=== PATIENT | male | born 1955 | race Caucasian/White ===

== ENCOUNTER 2018-05-04 23:03 | Inpatient (IN) | payer MEDICARE, MEDICAID ==
[~2018-05-04] VITALS: Ht 177.8 cm; Wt 80.2 kg
[~2018-05-04 23:03] MED LIST: ALEN70TA3 PO; ATOR-2 PO; CARB1TAB3 PO; DIVA500T2 PO; DIVA500T4 PO; LACO200T PO; LEVE100020 PO; LEVO0.5P PO; PROP10TA16 PO
[2018-05-04] MEDS ORDERED: METOCLOPRAMIDE 5 MG/ML, 2ML IVPush ONE (23:30)
[2018-05-04] MEDS ORDERED: LORazepam 2 MG/ML, 1ML IVPush ONE (23:30)
[2018-05-04] MEDS ORDERED: SODIUM CHLORIDE FLUSH 10ML SYR IVF ONE (23:30)
--- NOTE | 2018-05-04 23:52 | NUR ---
PT TO RAD
[2018-05-05 00:01] LABS: ALBUMIN 3.6 g/dL (3.4-5.0); ANION GAP 8 mmol/L (5-15); CALCIUM 9.3 mg/dL (8.5-10.1); CHLORIDE 102 mmol/L (98-107)
[2018-05-05 00:05] LABS: ALANINE AMINOTRANSFERASE 25 U/L (12-78); ALKALINE PHOSPHATASE 53 U/L (45-117); BILIRUBIN,TOTAL 0.6 mg/dL (0.2-1.0); CREATININE 1.09 mg/dL (0.7-1.3); TOTAL PROTEIN 7.2 g/dL (6.4-8.2)
[2018-05-05 00:16] LABS: BASOPHILS # (AUTO) 0.12 x10^3/uL (0-0.1); BASOPHILS % (AUTO) 1 % (0-1); EOSINOPHILS # (AUTO) 0.19 x10^3/uL (0-0.4); EOSINOPHILS % (AUTO) 1 % (1-7); LYMPHOCYTES % (AUTO) 13 % (22-44); MD NO; MEAN CORPUSCULAR HEMOGLOBIN 32.2 pg (27.5-34.5); MEAN CORPUSCULAR HGB CONC 34.1 g/dL (33.2-36.2); MEAN CORPUSCULAR VOLUME 94.3 fL (81-97); MEAN PLATELET VOLUME 9.2 fL (7.4-10.4); MONOCYTES # (AUTO) 1.28 x10^3/uL (0.2-0.8); MONOCYTES % (AUTO) 9 % (2-9); NEUTROPHILS # (AUTO) 11.13 x10^3/uL (1.8-6.8); NEUTROPHILS % (AUTO) 76 % (42-75); PLATELET COUNT 136 x10^3/uL (130-400); RED BLOOD COUNT 4.75 x10^6/uL (4.38-5.82); RED CELL DISTRIBUTION WIDTH 14.3 % (9.4-14.8)
[2018-05-05] MEDS ORDERED: METOCLOPRAMIDE 5 MG/ML, 2ML ONE (00:31)
[2018-05-05] MEDS ORDERED: LORazepam 2 MG/ML, 1ML ONE (00:32)
--- NOTE | 2018-05-05 01:05 | NUR ---
IV STARTED, ORDERED MEDS GIVEN. PT HAS SEIZURE PRECAUTIONS ON BED. 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 BILAT BEDRAILS UP. CALL LIGHT WITHIN REACH.
--- NOTE | 2018-05-05 01:21 | NUR ---
report to Lyubov rojas.
--- NOTE | 2018-05-05 01:21 | NUR ---
MED REQ UPDATED PER EMS STATED CURRENT MEDS. PT UNSURE OF DOSES. PT PLACED ON 2L O2 PER N/C DUE TO DESATING TO 86% ON RA WHILE DOZING OFF.
--- NOTE | 2018-05-05 01:29 | NUR ---
FOREHEAD WOUND CLEANED AND DRESSED.
[2018-05-05] MEDS ORDERED: ASPIRIN PO (01:30)
[2018-05-05] MEDS ORDERED: DIVALPROEX (01:30)
[2018-05-05 03:08] VITALS: BP 124/77
[2018-05-05 04:38] VITALS: BP 123/78
[2018-05-05] MEDS ORDERED: NS + 20MEQ KCL 1,000 ML IV SCH (05:41)
[2018-05-05] MEDS ORDERED: DOCUSATE 100 MG CAPSULE PO PRN (06:00)
[2018-05-05] MEDS ORDERED: ONDANSETRON 2MG/ML, 2ML IVPush PRN (06:00)
[2018-05-05] MEDS: LEVOTHYROXINE MC SCH ×2 (06:00→13:22)
[2018-05-05] MEDS ORDERED: morphine SULFATE 10 MG/ML, 1ML IVPush PRN (06:00)
[2018-05-05] MEDS ORDERED: HYDROcodone/APAP 5/325 TABLET PO PRN (06:00)
[2018-05-05] MEDS ORDERED: POLYETHYLENE GLYCOL 17 GM PACKET PO PRN (06:00)
[2018-05-05] MEDS: IBUPROFEN 600 MG TABLET PO SCH ×4 (06:31→21:08)
[2018-05-05] MEDS ORDERED: DIVALPROEX 500 MG TAB.ER.24H PO SCH (09:00)
[2018-05-05] MEDS ORDERED: LEVOTHYROXINE SODIUM PO SCH (09:00)
[2018-05-05 09:26] VITALS: BP 104/60
[2018-05-05] MEDS: PROPRANOLOL 10 MG TABLET PO SCH ×2 (10:28→21:08)
[2018-05-05] MEDS: LACOSAMIDE 50 MG TABLET PO SCH ×2 (10:28→21:09)
[2018-05-05] MEDS: SENNA/DOCUSATE TABLET PO SCH (10:29)
[2018-05-05] MEDS: LEVETIRACETAM 500 MG TABLET PO SCH ×2 (10:29→21:08)
[2018-05-05 11:03] LABS: MICROSCOPIC NOT IND
[2018-05-05 11:06] LABS: CULTURE INDICATED? NO
[2018-05-05 14:03] VITALS: BP 91/61
[2018-05-05 20:24] VITALS: BP 99/64
[2018-05-05] MEDS: DIVALPROEX 500 MG TAB.ER.24H PO SCH (21:08)
[2018-05-05] MEDS: ATORVASTATIN 80 MG TABLET PO SCH (21:08)
[2018-05-05] MEDS: HYDROcodone/APAP 5/325 TABLET PO PRN (22:51)
[2018-05-06 01:33] VITALS: BP 102/60
[2018-05-06] MEDS: HYDROcodone/APAP 5/325 TABLET PO PRN ×3 (05:16→21:29)
[2018-05-06] MEDS: LEVOTHYROXINE 25 MCG TABLET PO SCH (05:18)
[2018-05-06 07:15] VITALS: BP 90/47
[2018-05-06] MEDS: LACOSAMIDE 50 MG TABLET PO SCH ×2 (08:30→21:29)
[2018-05-06] MEDS: IBUPROFEN 600 MG TABLET PO SCH ×3 (08:30→21:30)
[2018-05-06] MEDS: SENNA/DOCUSATE TABLET PO SCH (08:30)
[2018-05-06] MEDS: LEVETIRACETAM 500 MG TABLET PO SCH ×2 (08:30→21:30)
[2018-05-06] MEDS: DIVALPROEX 500 MG TAB.ER.24H PO SCH ×2 (08:31→21:29)
[2018-05-06] MEDS: PROPRANOLOL 10 MG TABLET PO SCH ×2 (08:31→21:29)
[2018-05-06 12:27] VITALS: BP 97/64
[2018-05-06 19:50] VITALS: BP 95/62
[2018-05-06] MEDS: ATORVASTATIN 80 MG TABLET PO SCH (21:30)
[2018-05-07 01:44] VITALS: BP 98/65
[2018-05-07] MEDS: HYDROcodone/APAP 5/325 TABLET PO PRN ×2 (05:48→12:08)
[2018-05-07] MEDS: LEVOTHYROXINE 25 MCG TABLET PO SCH (05:48)
[2018-05-07 06:42] VITALS: BP 94/60
[2018-05-07] MEDS: LEVETIRACETAM 500 MG TABLET PO SCH (08:11)
[2018-05-07] MEDS: LACOSAMIDE 50 MG TABLET PO SCH (08:12)
[2018-05-07] MEDS: IBUPROFEN 600 MG TABLET PO SCH (08:12)
[2018-05-07] MEDS: DIVALPROEX 500 MG TAB.ER.24H PO SCH (08:12)
[2018-05-07] MEDS: SENNA/DOCUSATE TABLET PO SCH (08:12)
[2018-05-07] MEDS: PROPRANOLOL 10 MG TABLET PO SCH (08:12)
[2018-05-07] MEDS ORDERED: DIVA500T4 PO (12:03)
[2018-05-07] MEDS ORDERED: IBUP-1222 PO (12:03)
[2018-05-07] MEDS ORDERED: HYDR-3240 PO (12:03)
[2018-05-07] MEDS ORDERED: DOCU-131 PO (12:04)
[2018-05-07 14:40] VITALS: BP 102/69
== END 2018-05-07 18:04 | disposition home or self-care (01) | DRG 101 ==
LOC: ED 23:22 → EDIP 05-05 01:02 → 4WST 05-05 01:45 → 4EST 05-07 10:43
PROVIDERS: ADMIT Family Medicine; ATTEND Family Medicine
DX: G40.909 Epilepsy, unspecified, not intractable, without status epilepticus (principal); S22.41XA Multiple fractures of ribs, right side, initial encounter for closed fracture; I10 Essential (primary) hypertension; M85.80 Other specified disorders of bone density and structure, unspecified site; E78.5 Hyperlipidemia, unspecified; G89.11 Acute pain due to trauma; W18.39XA Other fall on same level, initial encounter; S00.81XA Abrasion of other part of head, initial encounter; Z86.73 Personal history of transient ischemic attack (TIA), and cerebral infarction without residual deficits; Z87.891 Personal history of nicotine dependence; Y93.89 Activity, other specified; Y92.038 Other place in apartment as the place of occurrence of the external cause; Y99.8 Other external cause status
CPT/HCPCS: 36415; 70450; 80053; 80164; 80177; 81003; 85025; 93005; 95819; 96374; 96375; 99285; G0378; J3480; J2060; J2765

== ENCOUNTER 2018-08-15 09:32 | Emergency (ER) | payer MEDICARE, MEDICAID ==
[~2018-08-15] VITALS: Ht 175.3 cm; Wt 80.0 kg
[~2018-08-15 09:32] MED LIST changes: +ASPIRIN PO; +DIVALPROEX; +DOCU-131 PO; +HYDR-3240 PO; +IBUP-1222 PO
--- NOTE | 2018-08-15 09:45 | NUR ---
THIS IS A 63 YEAR OLD MALE WHO WAS BIB BY AMBULANCE DUE TO SEIZURE AT HOME. PER EMS SEIZURE LASTED LESS THAT 5 MIN. LAST KNOWN SEIZURE ACTIVITY WAS 2 YEARS AGO. PT HAS HX OF CVA, SEIZURES, TBI, HTN. PT ALERT, ORIENTED TO SELF. REPEATITIVE MOVEMENT IN LIMPS. PLACED ON KNOT BORER SINUS AT 77, SP02 AT 2NC, 92, AND CYCLE VS. SEIZURE PADS ON.
[2018-08-15] MEDS ORDERED: LORazepam 2 MG/ML, 1ML ONE (09:49)
[2018-08-15] MEDS ORDERED: LORazepam 2 MG/ML, 1ML IVPush ONE (10:00)
[2018-08-15 10:19] LABS: BASOPHILS # (AUTO) 0.04 x10^3/uL (0-0.1); BASOPHILS % (AUTO) 0 % (0-1); EOSINOPHILS # (AUTO) 0.28 x10^3/uL (0-0.4); EOSINOPHILS % (AUTO) 3 % (1-7); LYMPHOCYTES # (AUTO) 1.66 x10^3/uL (1-3.4); LYMPHOCYTES % (AUTO) 20 % (22-44); MD NO; MEAN CORPUSCULAR HEMOGLOBIN 31.5 pg (27.5-34.5); MEAN CORPUSCULAR HGB CONC 33.3 g/dL (33.2-36.2); MEAN CORPUSCULAR VOLUME 94.7 fL (81-97); MEAN PLATELET VOLUME 9.7 fL (7.4-10.4); MONOCYTES # (AUTO) 0.68 x10^3/uL (0.2-0.8); MONOCYTES % (AUTO) 8 % (2-9); NEUTROPHILS # (AUTO) 5.78 x10^3/uL (1.8-6.8); NEUTROPHILS % (AUTO) 69 % (42-75); PLATELET COUNT 132 x10^3/uL (130-400); RED BLOOD COUNT 4.71 x10^6/uL (4.38-5.82); RED CELL DISTRIBUTION WIDTH 14.4 % (9.4-14.8)
[2018-08-15 10:23] LABS: ALBUMIN 3.5 g/dL (3.4-5.0); ANION GAP 7 mmol/L (5-15); CALCIUM 8.9 mg/dL (8.5-10.1); CHLORIDE 108 mmol/L (98-107); CREATININE 0.93 mg/dL (0.7-1.3)
--- NOTE | 2018-08-15 11:00 | NUR ---
PT SLEEPING, RESP EVEN AND UNLABORED
--- NOTE | 2018-08-15 12:40 | NUR ---
PT SLEEPING, AROUSES WHEN TALKING TO PATIENT, THEN GOES BACK TO SLEEP.
--- NOTE | 2018-08-15 12:50 | NUR ---
CALLED CECILE AT [phone], ASKED IF SHE IS ABLE TO PICK HIM UP. SHE STATES SHE DOES NOT HAVE A RIDE. EXPLAIN THAT WE WILL SEE IF [facility] CAN. WILL CALL BACK
--- NOTE | 2018-08-15 13:00 | NUR ---
Victorious WILL PSYCHIATRIC SPECIALIST PT AT 1438
--- NOTE | 2018-08-15 13:02 | NUR ---
CALLED AND CONFIRMED ADDRESS, EXPLAINED THAT [facility] PICK AT 1430, VERBALIZED UNDERSTANDING AND APPRECIATION
--- NOTE | 2018-08-15 13:15 | NUR ---
REPORT TO ROLY HUNTER, PLAN OF CARE DISCUSSED
--- NOTE | 2018-08-15 13:21 | NUR ---
RECEIVED REPORT FROM DALE MARTI. PT RESTING ON [facility]. EDGARD. S. AWARE OF POC FOR DC AT 1430 [facility] AND IS AGREEABLE TO THIS.
--- NOTE | 2018-08-15 13:59 | NUR ---
ERP DR. POWELL AT BEDSIDE. FAMILY AT BEDSIDE.
[2018-08-15] MEDS ORDERED: DIVALPROEX 500 MG TAB.ER.24H ONE (14:07)
[2018-08-15] MEDS ORDERED: LEVETIRACETAM 500 MG TABLET ONE (14:07)
[2018-08-15] MEDS ORDERED: LEVETIRACETAM 500 MG TABLET PO ONE (14:30)
[2018-08-15] MEDS ORDERED: DIVALPROEX 500 MG TAB.ER.24H PO ONE (14:30)
[2018-08-15] MEDS ORDERED: LACOSAMIDE 100 MG in SODIUM CHLORIDE 0.9% 100 ML IV ONE (14:30)
--- NOTE | 2018-08-15 14:37 | NUR ---
PT SLEEPING ON [facility]. NADN. JEAN-BAPTISTE.
--- NOTE | 2018-08-15 15:05 | NUR ---
PT SLEEPING ON [facility]. NADN. JEAN-BAPTISTE.
--- NOTE | 2018-08-15 16:10 | NUR ---
[facility] NADN. GUERREROS.
[2018-08-15 16:11] VITALS: BP 138/77
--- NOTE | 2018-08-15 16:50 | NUR ---
PT AMBULATORY W/ STEADY GAIT. FOLLOWS COMMANDS. PT HELPED GET HIMSELF DRESSED. ERP AWARE AND REASSESSED PT. PT OKAY TO BE DC'D. CECILE, PT , MADE AWARE.
== END 2018-08-15 17:51 | disposition home or self-care (01) ==
LOC: ED 13:21
DX: G40.309 Generalized idiopathic epilepsy and epileptic syndromes, not intractable, without status epilepticus (principal); Z86.73 Personal history of transient ischemic attack (TIA), and cerebral infarction without residual deficits; I10 Essential (primary) hypertension; E78.00 Pure hypercholesterolemia, unspecified
CPT/HCPCS: 36415; 80048; 82040; 85025; 96365; 96375; 99283; C9254; J2060

== ENCOUNTER 2019-02-03 23:11 | Inpatient (IN) | payer MEDICAID, MEDICARE ==
[~2019-02-03] VITALS: Ht 172.7 cm; Wt 80.0 kg
--- NOTE | 2019-02-03 23:24 | NUR ---
PER SPOUSE, THIS 64YOM AND SPOUSE WENT TO DINNER TONIGHT. SPOUSE STATES PT WAS "RELUCTANT" TO GO, C/O "NOT FEELING WELL." AFTER RETURNING HOME, PT WENT TO BED. SPOUSE STATES PT L ARM BEGAN TO TWITCH AND THEN THE RIGHT ARM. SPOUSE REPORTS PT WAS "STUTTERING." PER REMSA PT WAS GIVEN 5MG VRESED IM "TO STOP THE SZ." PT CURRENTLY AROUSABLE TO VOICE, SPEECH IS GARBLED, WILL ANSWER "YES" OR "NO". PT DENIES C/O PAIN AT THIS TIME. SZ PRECAUTIONS IN PLACE.
[2019-02-03] MEDS ORDERED: SODIUM CHLORIDE FLUSH 10ML SYR IVF ONE (23:30)
[2019-02-03 23:36] LABS: BASOPHILS # (AUTO) 0.05 x10^3/uL (0-0.1); BASOPHILS % (AUTO) 1 % (0-1); EOSINOPHILS # (AUTO) 0.09 x10^3/uL (0-0.4); EOSINOPHILS % (AUTO) 2 % (1-7); LYMPHOCYTES # (AUTO) 1.22 x10^3/uL (1-3.4); LYMPHOCYTES % (AUTO) 21 % (22-44); MD NO; MEAN CORPUSCULAR HEMOGLOBIN 32.2 pg (27.5-34.5); MEAN CORPUSCULAR HGB CONC 33.4 g/dL (33.2-36.2); MEAN CORPUSCULAR VOLUME 96.4 fL (81-97); MEAN PLATELET VOLUME 9.9 fL (7.4-10.4); MONOCYTES # (AUTO) 0.54 x10^3/uL (0.2-0.8); MONOCYTES % (AUTO) 9 % (2-9); NEUTROPHILS # (AUTO) 3.88 x10^3/uL (1.8-6.8); NEUTROPHILS % (AUTO) 67 % (42-75); PLATELET COUNT 100 x10^3/uL (130-400); RED BLOOD COUNT 4.21 x10^6/uL (4.38-5.82); RED CELL DISTRIBUTION WIDTH 14.4 % (9.4-14.8)
[2019-02-03 23:43] LABS: ALANINE AMINOTRANSFERASE 15 U/L (12-78); ANION GAP 4 mmol/L (5-15); CALCIUM 8.2 mg/dL (8.5-10.1); CHLORIDE 106 mmol/L (98-107); CREATININE 1.03 mg/dL (0.7-1.3)
[2019-02-03 23:45] LABS: ALKALINE PHOSPHATASE 75 U/L (45-117); BILIRUBIN,TOTAL 0.3 mg/dL (0.2-1.0); TOTAL PROTEIN 6.2 g/dL (6.4-8.2)
[2019-02-04] MEDS ORDERED: SODIUM CHLORIDE 0.9% 1,000ML IVBOLUS ONE
[2019-02-04] MEDS ORDERED: LEVETIRACETAM 1,000 MG in SODIUM CHLORIDE 0.9% 100 ML IV ONE
--- NOTE | 2019-02-04 00:02 | NUR ---
ATTEMPTED TO COMPLETE MED REC W/ SPOUSE. SPOUSE UNABLE TO RECALL ALL CURRENT MEDICATIONS OR DOSAGES AT THIS TIME. SPOUSE STATES PT DID TAKE KEPRA AND DEPAKOTE TONIGHT AT 2100
--- NOTE | 2019-02-04 00:02 | NUR ---
PT TAKEN TO CT
--- NOTE | 2019-02-04 00:07 | NUR ---
kevin request tubed to pharm
--- NOTE | 2019-02-04 00:14 | NUR ---
pt returns from ct at this time
[2019-02-04 00:23] LABS: TROPONIN I < 0.015 ng/mL (0.000-0.045)
--- NOTE | 2019-02-04 00:38 | NUR ---
PT AWAKE AND TALKING HOWEVER IS ONLY ORIENTED TO HIS . PT REQUIRING FREQUENT REMINDERS HE IS IN THE HOSPITAL.
[2019-02-04] MEDS ORDERED: ACYCLOVIR 800 MG in SODIUM CHLORIDE 0.9% 100 ML IV STA (00:52)
[2019-02-04] MEDS ORDERED: VANCOMYCIN PER PHARMACY MC PRN (01:00)
[2019-02-04] MEDS ORDERED: CEFTRIAXONE 1,000 MG in SODIUM CHLORIDE 0.9% 50 ML IVPB ONE (01:00)
[2019-02-04] MEDS ORDERED: ACYCLOVIR 800 MG in SODIUM CHLORIDE 0.9% 250 ML IV STA (01:03)
--- NOTE | 2019-02-04 01:06 | NUR ---
PT TAKEN FOR CTA
[2019-02-04] MEDS ORDERED: VANCOMYCIN 2,000 MG in SODIUM CHLORIDE 0.9% 500 ML IV ONE (01:30)
--- NOTE | 2019-02-04 01:50 | NUR ---
CONSENT FOR LP SIGNED BY SPOUSE PER ERP REVIEW
--- NOTE | 2019-02-04 02:07 | NUR ---
ERP AND ELECTRICAL CONSTRUCTION PROJECT MANAGER AT BEDSIDE TO PERFORM LP. SPOUSE SITTING OUTSIDE ROOM.
--- NOTE | 2019-02-04 03:27 | NUR ---
PT MORE ALERT, ADMITTING MD AT BEDSIDE REVIEWING HX AND POC W/ PT AND SPOUSE. PT CURRENTLY DENIES C/O PAIN.
[2019-02-04] MEDS ORDERED: ACETAMINOPHEN 325 MG TABLET PO PRN (04:00)
[2019-02-04] MEDS ORDERED: DOCUSATE 100 MG CAPSULE PO PRN (04:00)
[2019-02-04] MEDS ORDERED: ONDANSETRON 2MG/ML, 2ML IVPush PRN (04:00)
[2019-02-04] MEDS ORDERED: LABETALOL 5MG/ML, 20ML IVPush PRN (04:00)
[2019-02-04 04:12] LABS: INTERNATIONAL NORMALIZED RATIO 1.1 (0.93-1.1); PROTHROMBIN TIME 11.5 Seconds (9.6-11.5)
[2019-02-04 04:35] LABS: MICROSCOPIC NOT IND
[2019-02-04 04:38] LABS: CULTURE INDICATED? NO
[2019-02-04] MEDS ORDERED: OMNIPAQUE 350 MG/ML, 100ML BOTTLE ONE (04:47)
[2019-02-04] MEDS ORDERED: MAGNESIUM SULFATE PMX 2GM/50ML 50 ML IV ONE ×2 (05:00→10:00)
[2019-02-04 05:07] VITALS: BP 107/73
[2019-02-04] MEDS: ENOXAPARIN 40 MG/0.4 ML SQ SCH (05:19)
[2019-02-04] MEDS: ASPIRIN 81 MG TABLET EC PO SCH (05:20)
[2019-02-04 05:29] LABS: AMPHETAMINE SCREEN, URINE Negative (Negative); BARBITURATE SCREEN, URINE Negative (Negative); BENZODIAZEPINE SCREEN, URINE Positive (Negative); CANNABINOID SCREEN, URINE Positive (Negative); COCAINE SCREEN, URINE Negative (Negative); METHADONE SCREEN, URINE Negative (Negative); OPIATE SCREEN, URINE Negative (Negative)
[2019-02-04 07:22] VITALS: BP 99/67
[2019-02-04] MEDS ORDERED: DIVALPROEX 500 MG TAB.ER.24H PO SCH (09:00)
[2019-02-04] MEDS: LACOSAMIDE 50 MG TAB PO SCH ×2 (09:48→21:05)
[2019-02-04] MEDS: LEVETIRACETAM 500 MG TABLET PO SCH ×2 (09:48→21:04)
[2019-02-04] MEDS: PROPRANOLOL 10 MG TABLET PO SCH ×2 (09:49→21:04)
[2019-02-04] MEDS: LACTULOSE 20 GM/30 ML UDC PO SCH ×3 (12:15→21:03)
[2019-02-04 12:17] VITALS: BP 121/85
[2019-02-04 19:01] VITALS: BP 115/88
[2019-02-04] MEDS ORDERED: LORazepam 2 MG/ML, 1ML IVPush PRN (19:30)
[2019-02-04] MEDS ORDERED: ATORVASTATIN 80 MG TABLET PO SCH (21:00)
[2019-02-04] MEDS: DIVALPROEX 250 MG TAB.ER.24H PO SCH (22:53)
[2019-02-04 23:06] LABS: CLOSTRIDIUM DIFFICILE ANTIGEN NEGATIVE; CLOSTRIDIUM DIFFICILE TOXIN NEGATIVE (Negative)
[2019-02-05 00:25] VITALS: BP 122/80
[2019-02-05] MEDS: ENOXAPARIN 40 MG/0.4 ML SQ SCH (04:00)
[2019-02-05] MEDS: ASPIRIN 81 MG TABLET EC PO SCH (05:29)
[2019-02-05 06:15] LABS: CHLORIDE 109 mmol/L (98-107)
[2019-02-05 06:22] LABS: ALANINE AMINOTRANSFERASE 12 U/L (12-78); ALBUMIN 3.1 g/dL (3.4-5.0); ALKALINE PHOSPHATASE 41 U/L (45-117); ANION GAP 6 mmol/L (5-15); BILIRUBIN,TOTAL 0.6 mg/dL (0.2-1.0); CALCIUM 8.4 mg/dL (8.5-10.1); CHOL/HDL RATIO 2.2; CHOLESTEROL, TOTAL 125 mg/dL (140-239); CREATININE 0.94 mg/dL (0.7-1.3); HDL CHOL % 45 % (26-37); HDL CHOLESTEROL (DIRECT) 56 mg/dL (40-60); LDL CHOLESTEROL,CALCULATED 40 mg/dL (54-169); LDL/HDL RATIO 0.7 (0.5-3.0); TOTAL PROTEIN 6.4 g/dL (6.4-8.2); TRIGLYCERIDES 144 mg/dL (50-200); VLDL CHOLESTEROL 29 mg/dL (0-25)
[2019-02-05 06:32] VITALS: BP 111/76
[2019-02-05 07:00] LABS: MEAN CORPUSCULAR HEMOGLOBIN 32.2 pg (27.5-34.5); MEAN CORPUSCULAR HGB CONC 33.6 g/dL (33.2-36.2); MEAN CORPUSCULAR VOLUME 95.8 fL (81-97); MEAN PLATELET VOLUME 9.5 fL (7.4-10.4); PLATELET COUNT 91 x10^3/uL (130-400); RED BLOOD COUNT 4.34 x10^6/uL (4.38-5.82); RED CELL DISTRIBUTION WIDTH 14.6 % (9.4-14.8)
[2019-02-05 07:32] LABS: BASOPHILS # (AUTO) 0.03 x10^3/uL (0-0.1); BASOPHILS % (AUTO) 0 % (0-1); EOSINOPHILS # (AUTO) 0.15 x10^3/uL (0-0.4); EOSINOPHILS % (AUTO) 2 % (1-7); LYMPHOCYTES # (AUTO) 2.31 x10^3/uL (1-3.4); LYMPHOCYTES % (AUTO) 26 % (22-44); MD SCAN; MONOCYTES # (AUTO) 1.14 x10^3/uL (0.2-0.8); MONOCYTES % (AUTO) 13 % (2-9); NEUTROPHILS # (AUTO) 5.25 x10^3/uL (1.8-6.8); NEUTROPHILS % (AUTO) 59 % (42-75)
[2019-02-05] MEDS ORDERED: DIVA250T PO (08:57)
[2019-02-05] MEDS: LACTULOSE 20 GM/30 ML UDC PO SCH ×2 (09:06→16:33)
[2019-02-05] MEDS: PROPRANOLOL 10 MG TABLET PO SCH (09:06)
[2019-02-05] MEDS: LACOSAMIDE 50 MG TAB PO SCH (09:06)
[2019-02-05] MEDS: LEVETIRACETAM 500 MG TABLET PO SCH (09:06)
[2019-02-05] MEDS: DIVALPROEX 250 MG TAB.ER.24H PO SCH (09:25)
[2019-02-05] MEDS ORDERED: OMNIPAQUE 350 MG/ML, 75ML BOTTLE ONE (10:15)
[2019-02-05 12:09] VITALS: BP 100/63
[2019-02-05] MEDS ORDERED: FLU VACC QS2019-20 36MOS UP/PF 0.5 ML IM-VACC ONE (17:00)
[2019-02-05 18:27] VITALS: BP 119/75
== END 2019-02-05 19:00 | disposition home or self-care (01) | DRG 101 ==
LOC: ED 02-04 02:30 → EDIP 02-04 02:39 → 4EST 02-04 04:23
PROVIDERS: ADMIT Family Medicine; ATTEND Family Medicine
PROC: 00JU3ZZ Inspection of Spinal Canal, Percutaneous Approach (ICD-10-PCS; principal; 2019-02-04)
DX: G40.419 Other generalized epilepsy and epileptic syndromes, intractable, without status epilepticus (principal); E72.20 Disorder of urea cycle metabolism, unspecified; G83.84 Todd's paralysis (postepileptic); D64.9 Anemia, unspecified; D69.6 Thrombocytopenia, unspecified; E03.9 Hypothyroidism, unspecified; E78.00 Pure hypercholesterolemia, unspecified; E78.5 Hyperlipidemia, unspecified; I10 Essential (primary) hypertension; M85.80 Other specified disorders of bone density and structure, unspecified site; Z87.891 Personal history of nicotine dependence; Z86.73 Personal history of transient ischemic attack (TIA), and cerebral infarction without residual deficits; R09.02 Hypoxemia
CPT/HCPCS: 36415; 62270; 70450; 70496; 70498; 70551; 71045; 71260; 80053; 80061; 80164; 80307; 81003; 82140; 82607; 83605; 83735; 84100; 84145; 84443; 84484; 85025; 85610; 87040; 87324; 93005; 96365; 96375; G0378; J0696; J1650; J1953; Q9967; J3475; J7030

== ENCOUNTER 2019-02-26 12:55 | Outpatient (CLI) | payer MEDICARE ==
[~2019-02-26 12:55] MED LIST changes: +DIVA250T PO
== END 2019-02-26 23:59 | disposition home or self-care (01) ==
LOC: CFH 12:55
PROVIDERS: ATTEND Nurse Practitioner Family
DX: G40.419 Other generalized epilepsy and epileptic syndromes, intractable, without status epilepticus (principal)
CPT/HCPCS: 36415; 80164; 80177; 80339; 82140; 84450; 84460; G0480

== ENCOUNTER 2019-03-06 21:23 | Emergency (ER) | payer MEDICARE ==
[~2019-03-06] VITALS: Ht 172.7 cm; Wt 82.0 kg
--- NOTE | 2019-03-06 21:41 | NUR ---
PT ARRIVES FROM HOME FOR SEIZURE LIKE ACTIVITY. PER FAMILY THEY WITNESSED A SIEZURE AND CALL EMS. PER EMS PT WAS CONFUSED ON ARRIVAL AND ATTEMPTING TO LEAVE THE HOUSE BUT PER FAMILY, THIS IS PTS BASELINE. PT PLACED IN BED AND SEIZURE PRECAUTIONS IN PLACE. PT FOLLOWING COMMANDS BUT IS FORGETFUL AND DISORIENTED EASILY. PT HAS NO SIGNS OF INCONTINENCE OR POSTICITAL STATE. PT CONNECTED TO ALL MONITORS AND CALL LIGHT IN REACH. AWAITING FOR FURTHER ORDERS AT THIS TIME.
[2019-03-06] MEDS ORDERED: ONDANSETRON ODT 4 MG PO ONE (22:00)
--- NOTE | 2019-03-06 22:31 | NUR ---
PT HYPOXIC ON ROOM AIR, PLACED ON 3L NC.
[2019-03-06 22:34] LABS: BASOPHILS # (AUTO) 0.04 x10^3/uL (0-0.1); BASOPHILS % (AUTO) 1 % (0-1); EOSINOPHILS # (AUTO) 0.33 x10^3/uL (0-0.4); EOSINOPHILS % (AUTO) 4 % (1-7); LYMPHOCYTES # (AUTO) 1.28 x10^3/uL (1-3.4); LYMPHOCYTES % (AUTO) 17 % (22-44); MD NO; MEAN CORPUSCULAR HEMOGLOBIN 32.9 pg (27.5-34.5); MEAN CORPUSCULAR HGB CONC 33.3 g/dL (33.2-36.2); MEAN CORPUSCULAR VOLUME 98.9 fL (81-97); MEAN PLATELET VOLUME 10.1 fL (7.4-10.4); MONOCYTES # (AUTO) 0.73 x10^3/uL (0.2-0.8); MONOCYTES % (AUTO) 10 % (2-9); NEUTROPHILS # (AUTO) 5.29 x10^3/uL (1.8-6.8); NEUTROPHILS % (AUTO) 69 % (42-75); PLATELET COUNT 115 x10^3/uL (130-400); RED BLOOD COUNT 4.44 x10^6/uL (4.38-5.82); RED CELL DISTRIBUTION WIDTH 15.5 % (9.4-14.8)
[2019-03-06 22:39] LABS: ALANINE AMINOTRANSFERASE 22 U/L (12-78); ALBUMIN 3.6 g/dL (3.4-5.0); ANION GAP 5 mmol/L (5-15); CALCIUM 8.5 mg/dL (8.5-10.1); CHLORIDE 106 mmol/L (98-107)
[2019-03-06 22:42] LABS: ALKALINE PHOSPHATASE 99 U/L (45-117); BILIRUBIN,TOTAL 0.5 mg/dL (0.2-1.0); TOTAL PROTEIN 7.4 g/dL (6.4-8.2)
--- NOTE | 2019-03-06 23:19 | NUR ---
due to pts confusion and tbi at this time ambulance will be arranged for transport home.
[2019-03-06 23:38] VITALS: BP 124/82
--- NOTE | 2019-03-07 00:17 | NUR ---
REPORT TO INDU Ernst RN.
== END 2019-03-07 00:26 | disposition home or self-care (01) ==
LOC: ED 22:26
DX: G40.209 Localization-related (focal) (partial) symptomatic epilepsy and epileptic syndromes with complex partial seizures, not intractable, without status epilepticus (principal); Z86.73 Personal history of transient ischemic attack (TIA), and cerebral infarction without residual deficits
CPT/HCPCS: 36415; 80053; 85025; 93005; 99284

== ENCOUNTER 2019-06-30 21:29 | Inpatient (IN) | payer MEDICARE ==
[~2019-06-30] VITALS: Ht 172.7 cm; Wt 70.0 kg
--- NOTE | 2019-06-30 21:41 | NUR ---
Code neuro initated by provider. Lab, ccu rn, emt and trauma rn to room.
[2019-06-30] MEDS ORDERED: LORazepam 2 MG/ML, 1ML IVPush ONE (21:47)
--- NOTE | 2019-06-30 21:48 | NUR ---
Last known well approx 1999.
--- NOTE | 2019-06-30 21:56 | NUR ---
LAB IN ROOM DRAWING LABS. TRANSPORTING TO [facility] FOLLOWING LAB COLLECTION
[2019-06-30] MEDS ORDERED: PLEASE ENTER HEIGHT AND WEIGHT MC SCH (22:00)
--- NOTE | 2019-06-30 22:00 | NUR ---
Pt IV infiltrated during CT head with contrast. Approx 80ml of IV contrast infiltrated in right upper arm. Pt has no complaints at this time. Having difficulty establishing IV access.
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
[2019-06-30 22:19] LABS: PROTHROMBIN TIME 10.6 Seconds (9.6-11.5)
[2019-06-30 23:44] LABS: BASOPHILS # (AUTO) 0.03 x10^3/uL (0-0.1); BASOPHILS % (AUTO) 0 % (0-1); EOSINOPHILS # (AUTO) 0.16 x10^3/uL (0-0.4); EOSINOPHILS % (AUTO) 2 % (1-7); LYMPHOCYTES # (AUTO) 1.42 x10^3/uL (1-3.4); LYMPHOCYTES % (AUTO) 19 % (22-44); MD NO; MEAN CORPUSCULAR HEMOGLOBIN 31.7 pg (27.5-34.5); MEAN CORPUSCULAR HGB CONC 33.5 g/dL (33.2-36.2); MEAN CORPUSCULAR VOLUME 94.8 fL (81-97); MEAN PLATELET VOLUME 9.8 fL (7.4-10.4); MONOCYTES # (AUTO) 0.64 x10^3/uL (0.2-0.8); MONOCYTES % (AUTO) 9 % (2-9); NEUTROPHILS # (AUTO) 5.28 x10^3/uL (1.8-6.8); NEUTROPHILS % (AUTO) 70 % (42-75); PLATELET COUNT 118 x10^3/uL (130-400); RED BLOOD COUNT 4.71 x10^6/uL (4.38-5.82); RED CELL DISTRIBUTION WIDTH 14.5 % (9.4-14.8)
--- NOTE | 2019-07-01 00:10 | NUR ---
other note after fall" fall incident report was completed by this rn. report given to primary rn
[2019-07-01] MEDS ORDERED: hydrALAzine 20 MG/ML, 1ML IVPush PRN (00:30)
[2019-07-01] MEDS ORDERED: THIAMINE 100 MG in SODIUM CHLORIDE 0.9% 50 ML IV ONE (00:30)
[2019-07-01] MEDS ORDERED: TEMAZEPAM 15 MG CAPSULE PO PRN (00:30)
[2019-07-01] MEDS: ATORVASTATIN 80 MG TABLET PO SCH ×3 (00:30→19:59)
[2019-07-01] MEDS ORDERED: DOCUSATE 100 MG CAPSULE PO PRN (00:30)
[2019-07-01] MEDS ORDERED: HYDROcodone/APAP 5/325 TABLET PO PRN (00:30)
[2019-07-01] MEDS ORDERED: ONDANSETRON 2MG/ML, 2ML IV PRN (00:30)
[2019-07-01] MEDS ORDERED: ACETAMINOPHEN 650 MG/20.3 ML UDC PO PRN (00:30)
[2019-07-01 00:40] VITALS: BP 120/78
[2019-07-01] MEDS ORDERED: OMNIPAQUE 350 MG/ML, 100ML BOTTLE ONE (03:48)
[2019-07-01 06:33] LABS: CHOL/HDL RATIO 2.3
[2019-07-01 07:05] VITALS: BP 105/72
[2019-07-01] MEDS: LEVETIRACETAM 500 MG TABLET PO SCH ×2 (09:08→19:59)
[2019-07-01] MEDS: DIVALPROEX 250 MG TAB.ER.24H PO SCH ×2 (09:08→19:58)
[2019-07-01] MEDS: PROPRANOLOL 10 MG TABLET PO SCH ×2 (09:08→19:59)
[2019-07-01] MEDS: ASPIRIN 325 MG TABLET PO SCH (09:09)
[2019-07-01 09:31] LABS: MICROSCOPIC NOT IND
[2019-07-01 09:32] LABS: CULTURE INDICATED? NO
[2019-07-01 13:59] VITALS: BP 109/73
[2019-07-01 18:08] LABS: AMPHETAMINE SCREEN, URINE Negative (Negative); BARBITURATE SCREEN, URINE Negative (Negative); BENZODIAZEPINE SCREEN, URINE Positive (Negative); CANNABINOID SCREEN, URINE Negative (Negative); COCAINE SCREEN, URINE Negative (Negative); METHADONE SCREEN, URINE Negative (Negative); OPIATE SCREEN, URINE Negative (Negative)
[2019-07-01 19:51] VITALS: BP 114/73
[2019-07-01] MEDS: LACOSAMIDE 50 MG TAB PO SCH (19:58)
[2019-07-02 02:18] VITALS: BP 107/70
[2019-07-02] MEDS: ASPIRIN 325 MG TABLET PO SCH (05:31)
[2019-07-02 05:50] LABS: BASOPHILS # (AUTO) 0.05 x10^3/uL (0-0.1); BASOPHILS % (AUTO) 1 % (0-1); EOSINOPHILS # (AUTO) 0.08 x10^3/uL (0-0.4); EOSINOPHILS % (AUTO) 1 % (1-7); LYMPHOCYTES # (AUTO) 2.06 x10^3/uL (1-3.4); LYMPHOCYTES % (AUTO) 28 % (22-44); MD NO; MEAN CORPUSCULAR HGB CONC 33.7 g/dL (33.2-36.2); MEAN CORPUSCULAR VOLUME 94.8 fL (81-97); MEAN PLATELET VOLUME 9.8 fL (7.4-10.4); MONOCYTES # (AUTO) 0.87 x10^3/uL (0.2-0.8); MONOCYTES % (AUTO) 12 % (2-9); NEUTROPHILS # (AUTO) 4.43 x10^3/uL (1.8-6.8); NEUTROPHILS % (AUTO) 59 % (42-75); PLATELET COUNT 115 x10^3/uL (130-400); RED BLOOD COUNT 4.65 x10^6/uL (4.38-5.82); RED CELL DISTRIBUTION WIDTH 14.3 % (9.4-14.8)
[2019-07-02 06:00] LABS: ALBUMIN 3.2 g/dL (3.4-5.0); ANION GAP 7 mmol/L (5-15); CALCIUM 8.8 mg/dL (8.5-10.1); CHLORIDE 105 mmol/L (98-107)
[2019-07-02] MEDS ORDERED: LEVOTHYROXINE 50 MCG TABLET PO SCH (06:00)
[2019-07-02 06:29] LABS: ALANINE AMINOTRANSFERASE 13 U/L (12-78); ALKALINE PHOSPHATASE 42 U/L (45-117); BILIRUBIN,TOTAL 0.9 mg/dL (0.2-1.0); CREATININE 0.86 mg/dL (0.7-1.3); TOTAL PROTEIN 6.9 g/dL (6.4-8.2)
[2019-07-02 09:20] VITALS: BP 106/68
[2019-07-02] MEDS: LACOSAMIDE 50 MG TAB PO SCH (09:21)
[2019-07-02] MEDS: DIVALPROEX 250 MG TAB.ER.24H PO SCH (09:21)
[2019-07-02] MEDS: PROPRANOLOL 10 MG TABLET PO SCH (09:21)
[2019-07-02] MEDS: LEVETIRACETAM 500 MG TABLET PO SCH (09:21)
[2019-07-02 13:54] VITALS: BP 110/64
[2019-07-04] MEDS ORDERED: ALENDRONATE 70 MG TABLET PO SCH (06:30)
== END 2019-07-02 17:21 | disposition home or self-care (01) | DRG 101 ==
LOC: ED 23:06 → EDIP 07-01 00:10 → 4EST 07-01 00:32
PROVIDERS: ADMIT Family Medicine; ATTEND Family Medicine
DX: G40.419 Other generalized epilepsy and epileptic syndromes, intractable, without status epilepticus (principal); D69.6 Thrombocytopenia, unspecified; E03.9 Hypothyroidism, unspecified; E78.00 Pure hypercholesterolemia, unspecified; E78.5 Hyperlipidemia, unspecified; F32.9 Major depressive disorder, single episode, unspecified; G83.84 Todd's paralysis (postepileptic); I10 Essential (primary) hypertension; M85.80 Other specified disorders of bone density and structure, unspecified site; Z86.73 Personal history of transient ischemic attack (TIA), and cerebral infarction without residual deficits; Z87.891 Personal history of nicotine dependence; W18.39XA Other fall on same level, initial encounter; Y93.89 Activity, other specified; Y92.89 Other specified places as the place of occurrence of the external cause; Y99.8 Other external cause status
CPT/HCPCS: 36415; 70450; 70496; 70498; 80047; 80053; 80061; 80164; 80307; 81003; 82140; 82607; 82962; 84443; 85025; 85610; 85730; 93005; 99283; G0378; J3411; Q9967

== ENCOUNTER 2020-04-12 17:36 | Observation (INO) | payer MEDICARE ==
[~2020-04-12] VITALS: Ht 162.6 cm; Wt 65.7 kg
[2020-04-12] MEDS ORDERED: LORazepam 2 MG/ML, 1ML ONE ×2 (18:17→18:29)
[2020-04-12] MEDS ORDERED: DIAZEPAM 5 MG/ML, 2ML ONE (18:19)
--- NOTE | 2020-04-12 18:29 | NUR ---
Milagros RN note: Pt medicated with 5mg IM Valium in response to seizurelike activity per Dr. Ayoub. Pt with continues seizurelike activity, increasing in intensity. Dr. Ayoub aware.
[2020-04-12] MEDS ORDERED: DIAZEPAM 5 MG/ML, 10ML VIAL IM PRN (18:30)
[2020-04-12] MEDS ORDERED: LORazepam 2 MG/ML, 1ML IVPush ONE ×2 (18:30)
--- NOTE | 2020-04-12 18:30 | NUR ---
Milagros RN note: Pt medicated with 1mg Ativan IVP per Dr. Ayoub at this time.
--- NOTE | 2020-04-12 18:35 | NUR ---
SEIZURE HAS STOPPED. PT IS POST DICTAL. UNABLE TO ANSWER QUESTIONS OR FOLLOW COMANDS. VSS. PT PLACED ON OXYMASK 6L FOR O2 SAT IN THE MID 80'S. PROVIDER UPDATED.
[2020-04-12 18:36] LABS: BASOPHILS % (AUTO) 1 % (0-1); EOSINOPHILS % (AUTO) 3 % (1-7); LYMPHOCYTES % (AUTO) 24 % (22-44); MEAN CORPUSCULAR HEMOGLOBIN 32.4 pg (27.5-34.5); MEAN CORPUSCULAR HGB CONC 33.7 g/dL (33.2-36.2); MEAN PLATELET VOLUME 9.8 fL (7.4-10.4); MONOCYTES % (AUTO) 12 % (2-9); NEUTROPHILS % (AUTO) 60 % (42-75); PLATELET COUNT 114 x10^3/uL (130-400); RED BLOOD COUNT 5.07 x10^6/uL (4.38-5.82); RED CELL DISTRIBUTION WIDTH 13.9 % (9.4-14.8)
[2020-04-12 18:42] LABS: MD NO
[2020-04-12 18:47] LABS: ALANINE AMINOTRANSFERASE 16 U/L (12-78); ALBUMIN 3.7 g/dL (3.4-5.0); ANION GAP 8 mmol/L (5-15); CALCIUM 8.6 mg/dL (8.5-10.1); CHLORIDE 105 mmol/L (98-107); CREATININE 1.27 mg/dL (0.7-1.3)
[2020-04-12 18:49] LABS: ALKALINE PHOSPHATASE 102 U/L (45-117); BILIRUBIN,TOTAL 0.5 mg/dL (0.2-1.0); TOTAL PROTEIN 7.6 g/dL (6.4-8.2)
[2020-04-12] MEDS ORDERED: LEVETIRACETAM 1,500 MG in SODIUM CHLORIDE 0.9% 100 ML IV ONE (19:00)
[2020-04-12] MEDS ORDERED: LEVETIRACETAM 500 MG in SODIUM CHLORIDE 0.9% 100 ML IV ONE (19:00)
[2020-04-12] MEDS ORDERED: LACOSAMIDE 200 MG in SODIUM CHLORIDE 0.9% 100 ML IV ONE (19:30)
--- NOTE | 2020-04-12 19:32 | NUR ---
BEDSIDE REPORT FROM LEONILA AT THIS TIME. PT RESTING ON GURNEY OCCASIONALLY OPENING EYES LOOKING AROUND. VSKlever. EDGARD AT THIS TIME
--- NOTE | 2020-04-12 20:08 | NUR ---
VIMPAT STARTED AT THIS TIME.
--- NOTE | 2020-04-12 20:19 | NUR ---
DR HERNÁNDEZ IN CONTACT WITH FAMILY. WILL BE HERE SHORTLY FOR PT TO DC HOME
--- NOTE | 2020-04-12 20:52 | NUR ---
PT AWAKE AND TALKING PT STS "I LOVE MY FAMILY THEY'RE THE GREATEST ONE I EVER HAD"
--- NOTE | 2020-04-12 21:32 | NUR ---
FAMILY NOW IN ROOM TO SEE PT AT THIS TIME
--- NOTE | 2020-04-12 21:43 | NUR ---
PER FAMILY PT IS NOT AT BASELINE AT THIS TIME. PER DAUGHTER PT IS USUALLY AMBULATORY AND -.
--- NOTE | 2020-04-12 22:00 | NUR ---
ATTEMPTED AMBULATION, PT NOT FOLLOWING COMMANDS
--- NOTE | 2020-04-12 22:21 | NUR ---
PT BECOMING MORE COHERENT AT THIS TIME. ABLE TO ANSWER MORE QUESTIONS BUT STILL SLOW TO RESPOND.
--- NOTE | 2020-04-12 22:56 | NUR ---
PT DAUGHTER CALLED TO COME SEE PT AND DISCUSS POC. PT STS WANTS TO GO HOME BUT APPEARS TO BE VERY FRUSTRATED WITH STAFF AT THE SUGGESTION OF AMBULATION.
--- NOTE | 2020-04-12 23:26 | NUR ---
WANDA [phone] CALL ANYTIME
--- NOTE | 2020-04-12 23:42 | NUR ---
PT INCON OF URINE. PT CLOTHING CHANGED AND GOWN REPLACED. PT RESTING ON GURNEY WITH DAUGHTER AT BEDSIDE.
--- NOTE | 2020-04-13 00:03 | NUR ---
[facility]
--- NOTE | 2020-04-13 00:24 | NUR ---
REPORT TO EMILY RN PT READY FOR TRANSFER TO [place] [id number] AT THIS TIME
[2020-04-13] MEDS ORDERED: ONDANSETRON 2MG/ML, 2ML IVPush PRN (00:30)
[2020-04-13] MEDS ORDERED: ACETAMINOPHEN 325 MG TABLET PO PRN (00:30)
[2020-04-13] MEDS ORDERED: hydrALAzine 20 MG/ML, 1ML IVPush PRN (00:30)
[2020-04-13 00:48] VITALS: BP 108/64
[2020-04-13] MEDS: DIVALPROEX 250 MG TAB.ER.24H PO SCH ×2 (01:12→11:01)
[2020-04-13] MEDS ORDERED: LACOSAMIDE 200 MG TAB PO SCH (09:00)
[2020-04-13] MEDS ORDERED: PROPRANOLOL 10 MG TABLET PO SCH (09:00)
[2020-04-13] MEDS ORDERED: LEVOTHYROXINE 50 MCG TABLET PO SCH (09:00)
[2020-04-13] MEDS ORDERED: LEVETIRACETAM 500 MG TABLET PO SCH ×2 (09:00→21:00)
[2020-04-13] MEDS ORDERED: LEVETIRACETAM 100 MG/ML, 5ML IVPush SCH (11:00)
[2020-04-13] MEDS ORDERED: LACOSAMIDE 200 MG in SODIUM CHLORIDE 0.9% 100 ML IV SCH (11:30)
[2020-04-13] MEDS ORDERED: LEVETIRACETAM 1,500 MG in SODIUM CHLORIDE 0.9% 100 ML IV SCH (11:30)
[2020-04-13 12:21] VITALS: BP 104/70
[2020-04-13] MEDS ORDERED: ATORVASTATIN 80 MG TABLET PO SCH (21:00)
[2020-04-13] MEDS ORDERED: LACOSAMIDE 200 MG TAB HOMEMEDPO SCH (21:00)
== END 2020-04-13 19:41 | disposition home or self-care (01) ==
LOC: ED 19:55 → EDIP 04-13 00:06 → INTOOBSV 04-13 00:06 → 5SO 04-13 00:46
PROVIDERS: ADMIT Family Medicine; ATTEND Hospitalist
DX: G40.909 Epilepsy, unspecified, not intractable, without status epilepticus (principal); G93.40 Encephalopathy, unspecified; I10 Essential (primary) hypertension; E03.9 Hypothyroidism, unspecified; M85.80 Other specified disorders of bone density and structure, unspecified site; E78.5 Hyperlipidemia, unspecified; G83.84 Todd's paralysis (postepileptic); Z87.820 Personal history of traumatic brain injury; Z79.83 Long term (current) use of bisphosphonates; Z79.890 Hormone replacement therapy; Z79.899 Other long term (current) drug therapy
CPT/HCPCS: 36415; 70450; 80053; 80177; 84443; 85025; 93005; 96365; 96367; 96372; 96375; 99285; C9254; G0378; J1953; J2060

== ENCOUNTER 2020-12-06 01:08 | Inpatient (IN) | payer MEDICARE ==
[~2020-12-06] VITALS: Ht 170.2 cm; Wt 63.0 kg
[~2020-12-06 01:08] MED LIST changes: +HYDR-2214 PO; -HYDR-3240 PO
--- NOTE | 2020-12-06 01:11 | NUR ---
INITIAL PT CONTACT. PT PRESENTS TO ED VIA EMS FROM HOME C/O SEIZURE LASTING APPROX 10-15 MINUTES. PT WAS SEEN AT [facility] TODAY AND DC HOME, PT HAS HX OF SEIZURES AND CURRENTLY TAKING MULTIPLE SEIZURE MEDS PRESCRIBED. 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 PT HAS A GCS OF APPROX 6-7 UPON ARRIVAL, UNABLE TO ANSWER ANY QUESTIONS. RESPONDS TO PAINFUL STIMULI. PT PLACED ON CONTINUOUS MONITORING. CALL LIGHT AND PERSONAL BELONGINGS WITHIN REACH. NADN, VSS. NO NEEDS AT THIS TIME. AWAITING ERP.
[2020-12-06] MEDS ORDERED: SODIUM CHLORIDE 0.9% 1,000ML IVBOLUS ONE (01:30)
[2020-12-06 02:00] LABS: BASOPHILS % (AUTO) 0 % (0-1); EOSINOPHILS % (AUTO) 0 % (1-7); LYMPHOCYTES % (AUTO) 7 % (22-44); MEAN CORPUSCULAR HEMOGLOBIN 31.9 pg (27.5-34.5); MEAN CORPUSCULAR HGB CONC 33.2 g/dL (33.2-36.2); MEAN PLATELET VOLUME 9.9 fL (7.4-10.4); MONOCYTES % (AUTO) 9 % (2-9); NEUTROPHILS % (AUTO) 83 % (42-75); PLATELET COUNT 119 x10^3/uL (130-400); RED CELL DISTRIBUTION WIDTH 13.8 % (9.4-14.8)
[2020-12-06 02:11] LABS: ALANINE AMINOTRANSFERASE 16 U/L (12-78); ALBUMIN 3.6 g/dL (3.4-5.0); ANION GAP 11 mmol/L (5-15); CALCIUM 9.6 mg/dL (8.5-10.1); CHLORIDE 101 mmol/L (98-107); CREATININE 1.29 mg/dL (0.7-1.3)
[2020-12-06 02:15] LABS: ALKALINE PHOSPHATASE 63 U/L (45-117); BILIRUBIN,TOTAL 0.5 mg/dL (0.2-1.0); TOTAL PROTEIN 7.9 g/dL (6.4-8.2); TROPONIN I < 0.015 ng/mL (0.000-0.045)
[2020-12-06] MEDS ORDERED: VALP250C59 PO (02:33)
[2020-12-06] MEDS ORDERED: LACO200T PO (02:33)
[2020-12-06] MEDS ORDERED: SODIUM CHLORIDE 0.9% 1,000 ML IV ONE (03:30)
--- NOTE | 2020-12-06 03:30 | NUR ---
ATTEMPT TO CONTACT OF PT AND GET A COMPLETE AND UP TO DATE MEDICAL HISTORY AND INFORMATION REGARDING WHAT EVENTS OCCURED TODAY LEADING TO HIM COMING TO THE ED. UNABLE TO CONTACT , NO ANSWER. ERP AWARE
--- NOTE | 2020-12-06 03:43 | NUR ---
Pt to be admitted to [facility], room 509-1. Report called to KRISTIN HUNTER.
[2020-12-06 04:43] VITALS: BP 110/66
[2020-12-06] MEDS ORDERED: LABETALOL 5MG/ML, 20ML IVPush PRN (05:30)
[2020-12-06] MEDS ORDERED: ACETAMINOPHEN 325 MG TABLET PO PRN (05:30)
[2020-12-06 07:03] VITALS: BP 103/72
[2020-12-06] MEDS ORDERED: VALPROATE SODIUM 250 MG in DEXTROSE 5% 100 ML IV SCH (09:30)
[2020-12-06] MEDS: LEVETIRACETAM 1,500 MG in SODIUM CHLORIDE 0.9% 100 ML IV SCH ×2 (09:30→21:00)
[2020-12-06] MEDS: LACOSAMIDE 200 MG in SODIUM CHLORIDE 0.9% 100 ML IV SCH ×2 (10:00→21:28)
[2020-12-06 12:32] VITALS: BP 106/70
[2020-12-06 20:02] VITALS: BP 118/72
[2020-12-07 02:48] VITALS: BP 119/72
[2020-12-07 05:42] LABS: BASOPHILS % (AUTO) 1 % (0-1); EOSINOPHILS % (AUTO) 0 % (1-7); LYMPHOCYTES % (AUTO) 25 % (22-44); MEAN CORPUSCULAR HEMOGLOBIN 32.2 pg (27.5-34.5); MEAN CORPUSCULAR HGB CONC 33.4 g/dL (33.2-36.2); MEAN PLATELET VOLUME 10.4 fL (7.4-10.4); MONOCYTES % (AUTO) 13 % (2-9); NEUTROPHILS % (AUTO) 61 % (42-75); PLATELET COUNT 90 x10^3/uL (130-400); RED BLOOD COUNT 4.49 x10^6/uL (4.38-5.82)
[2020-12-07 05:48] LABS: CHLORIDE 106 mmol/L (98-107)
[2020-12-07 05:55] LABS: ALANINE AMINOTRANSFERASE 12 U/L (12-78); ALBUMIN 2.7 g/dL (3.4-5.0); ALKALINE PHOSPHATASE 44 U/L (45-117); ANION GAP 6 mmol/L (5-15); BILIRUBIN,TOTAL 0.7 mg/dL (0.2-1.0); CALCIUM 8.5 mg/dL (8.5-10.1); TOTAL PROTEIN 6.5 g/dL (6.4-8.2)
[2020-12-07] MEDS: LEVETIRACETAM 1,500 MG in SODIUM CHLORIDE 0.9% 100 ML IV SCH ×2 (08:41→20:34)
[2020-12-07] MEDS: LACOSAMIDE 200 MG in SODIUM CHLORIDE 0.9% 100 ML IV SCH ×2 (09:17→22:19)
[2020-12-07 13:23] VITALS: BP 115/77
[2020-12-07 18:22] VITALS: BP 105/74
[2020-12-07] MEDS: ENOXAPARIN 40 MG/0.4 ML SQ SCH (19:47)
[2020-12-07] MEDS: SODIUM CHLORIDE 0.9% 1,000 ML IV SCH (23:30)
[2020-12-08 00:42] VITALS: BP 128/80
[2020-12-08 05:45] LABS: BASOPHILS % (AUTO) 1 % (0-1); EOSINOPHILS % (AUTO) 0 % (1-7); LYMPHOCYTES % (AUTO) 23 % (22-44); MEAN CORPUSCULAR HEMOGLOBIN 32.9 pg (27.5-34.5); MEAN CORPUSCULAR HGB CONC 34.3 g/dL (33.2-36.2); MEAN PLATELET VOLUME 10.5 fL (7.4-10.4); MONOCYTES % (AUTO) 15 % (2-9); NEUTROPHILS % (AUTO) 60 % (42-75); PLATELET COUNT 90 x10^3/uL (130-400); RED BLOOD COUNT 3.94 x10^6/uL (4.38-5.82); RED CELL DISTRIBUTION WIDTH 13.7 % (9.4-14.8)
[2020-12-08 05:57] LABS: ANION GAP 8 mmol/L (5-15); CHLORIDE 106 mmol/L (98-107)
[2020-12-08 05:58] LABS: CREATININE 0.74 mg/dL (0.7-1.3)
[2020-12-08 06:17] VITALS: BP 128/79
[2020-12-08] MEDS ORDERED: AVOID BENZODIAZEPINES MC PRN (07:00)
[2020-12-08] MEDS ORDERED: QUETIAPINE 25MG TABLET PO PRN (07:00)
[2020-12-08] MEDS ORDERED: INSTRUCTION SEE COMMENTS XX PRN (07:00)
[2020-12-08] MEDS: VALPROATE SODIUM 750 MG in DEXTROSE 5% 100 ML IV SCH ×2 (08:07→09:52)
[2020-12-08] MEDS: LEVETIRACETAM 1,500 MG in SODIUM CHLORIDE 0.9% 100 ML IV SCH ×2 (09:48→21:15)
[2020-12-08] MEDS: LACOSAMIDE 200 MG in SODIUM CHLORIDE 0.9% 100 ML IV SCH ×2 (11:46→22:47)
[2020-12-08 13:29] VITALS: BP 105/71
[2020-12-08] MEDS: HALOPERIDOL 5 MG/ML IV PRN (17:59)
[2020-12-08 19:26] VITALS: BP 117/79
[2020-12-08] MEDS: MELATONIN 3 MG TABLET PO SCH ×2 (19:34→21:00)
[2020-12-08] MEDS: ENOXAPARIN 40 MG/0.4 ML SQ SCH ×2 (19:34→22:47)
[2020-12-09] MEDS: MELATONIN 3 MG TABLET PO SCH (00:02)
[2020-12-09] MEDS: HALOPERIDOL 5 MG/ML IV PRN ×2 (00:02→07:11)
[2020-12-09] MEDS: SODIUM CHLORIDE 0.9% 1,000 ML IV SCH (06:00)
[2020-12-09 07:19] VITALS: BP 123/77
[2020-12-09] MEDS: LEVETIRACETAM 1,500 MG in SODIUM CHLORIDE 0.9% 100 ML IV SCH (08:30)
[2020-12-09 09:50] LABS: BASOPHILS % (AUTO) 1 % (0-1); EOSINOPHILS % (AUTO) 1 % (1-7); LYMPHOCYTES % (AUTO) 19 % (22-44); MEAN CORPUSCULAR HEMOGLOBIN 32.4 pg (27.5-34.5); MEAN CORPUSCULAR HGB CONC 33.8 g/dL (33.2-36.2); MEAN PLATELET VOLUME 9.3 fL (7.4-10.4); MONOCYTES % (AUTO) 12 % (2-9); NEUTROPHILS % (AUTO) 68 % (42-75); PLATELET COUNT 92 x10^3/uL (130-400); RED BLOOD COUNT 3.66 x10^6/uL (4.38-5.82); RED CELL DISTRIBUTION WIDTH 13.6 % (9.4-14.8)
[2020-12-09 10:03] LABS: CHLORIDE 106 mmol/L (98-107)
[2020-12-09 10:09] LABS: ALANINE AMINOTRANSFERASE 12 U/L (12-78); ALBUMIN 2.7 g/dL (3.4-5.0); ALKALINE PHOSPHATASE 40 U/L (45-117); ANION GAP 9 mmol/L (5-15); BILIRUBIN,TOTAL 0.8 mg/dL (0.2-1.0); CALCIUM 8.3 mg/dL (8.5-10.1); CREATININE 0.68 mg/dL (0.7-1.3); TOTAL PROTEIN 5.9 g/dL (6.4-8.2)
[2020-12-09] MEDS: LACOSAMIDE 200 MG in SODIUM CHLORIDE 0.9% 100 ML IV SCH (12:19)
[2020-12-09 12:47] VITALS: BP 101/65
== END 2020-12-09 14:40 | disposition home or self-care (01) | DRG 101 ==
LOC: ED 03:37 → OBSVTOIN 03:38 → INTOOBSV 03:38 → EDIP 03:38 → 5SO 06:13
PROVIDERS: ADMIT Family Medicine; ATTEND Internal Medicine
DX: G40.901 Epilepsy, unspecified, not intractable, with status epilepticus (principal); E87.1 Hypo-osmolality and hyponatremia; D69.6 Thrombocytopenia, unspecified; D72.829 Elevated white blood cell count, unspecified; E03.9 Hypothyroidism, unspecified; E78.00 Pure hypercholesterolemia, unspecified; I10 Essential (primary) hypertension; Z78.1 Physical restraint status; Z79.899 Other long term (current) drug therapy; Z87.820 Personal history of traumatic brain injury; Z91.14 Patient's other noncompliance with medication regimen
CPT/HCPCS: 36415; 70450; 80048; 80053; 80164; 80177; 82140; 84443; 84484; 85025; 93005; 95819; 96361; 96374; C9254; G0378; J1650; J1953; J1630; J7030